=== PATIENT | female | born 1955 | race Caucasian/White ===

== ENCOUNTER 2016-10-05 05:52 | Day surgery (SDC) | payer BC ==
--- NOTE | 2016-10-04 13:04 | PREOPHP ---
DATE OF ADMISSION: 10/05/2016 HISTORY OF PRESENT ILLNESS: This 61-year-old patient is admitted for elective cataract surgery of t he right eye. The patient has had decreased vision in both eyes for approximately 1 year's time and was previously diagnosed with some diabetic retinal bleeding approximately a half a year ago. The patient's systemic history is positive for insulin-dependent diabetes mellitus and hypercholeste rolemia. CURRENT MEDICATIONS: Include: 1. Insulin. 2. Atorvastatin. 3. Prozac. 4. Xigduo. 5. Aspirin (discontinued 1 week prior to surgery). ALLERGIES: THERE ARE NO KNOWN ALLERGIES. The patient has also previously had pterygium surgery in both eyes approximately 7 years ago. PHYSICAL EXAMINATION: On examination, the visual acuity is 20/40 in each eye. Slit lamp examinatio n reveals anterior cortical nuclear sclerotic and posterior subcapsular cataract changes in both eye s. Applanation tonometry is 18 mmHg in both eyes. Examination of the retina reveals intraretinal h emorrhages compatible with diabetic retinopathy. DIAGNOSIS: Cataract, right eye. PLAN: Cataract extraction with lens implant, right eye. The risks and alternatives to the surgery have been discussed with the patient, and patient has agreed to proceed with surgery in hopes of imp roving visual acuity leading to a greater ability to perform activities of daily living. Dictated By: ALEXIA WASHBURN/QUOC Conf#: [id number] DID#: [id number]
[2016-10-04 13:39] VITALS: BMI 27.3
[2016-10-05] VITALS (9 sets, daily range): BP systolic 124–148; BP diastolic 69–83; PULSE 74–78; RESP 18–22; Ht 157.5 cm; Wt 67.5 kg
[~2016-10-05] VITALS: Ht 157.5 cm; Wt 67.5 kg
[~2016-10-05 05:52] MED LIST: CIPROFLOXACIN 0.3% 2.5 ML OPH OPER SCH; CYCLOPENTOLATE/PHENYLEPH 2 ML OPH OPER SCH; DICLOFENAC 0.1% 2.5 ML OPH OPER SCH; TROPICAMIDE 1% 2 ML OPH OPER SCH
[2016-10-05] MEDS ORDERED: MIDAZOLAM 1 MG/ML 2 ML INJ IV PRN (06:30)
[2016-10-05] MEDS ORDERED: OXYCODONE/ACETAMINOPHEN (5/325) TAB PO PRN ×2 (06:30)
[2016-10-05] MEDS ORDERED: ATROPINE 1 MG/10 ML SYRINGE IV PRN (06:30)
[2016-10-05] MEDS ORDERED: LABETALOL HCL 20MG INJ IV PRN (06:30)
[2016-10-05] MEDS ORDERED: PROPOFOL 20 ML ONE (06:30)
[2016-10-05] MEDS ORDERED: FENTAnyl 50 MCG/ML VIAL IV PRN ×2 (06:30)
[2016-10-05] MEDS ORDERED: hydrALAzine 20 MG INJ IV PRN (06:30)
[2016-10-05] MEDS ORDERED: morphine (1 MG/ML) 10ML SYRINGE IV PRN ×3 (06:30)
[2016-10-05] MEDS ORDERED: LIDOCAINE 100 MG SYRINGE ONE (06:30)
[2016-10-05] MEDS ORDERED: MEPERIDINE 25 MG INJ IV PRN (06:30)
[2016-10-05] MEDS ORDERED: EPHEDrine SULFATE 50 MG/5 ML SYG IV PRN (06:30)
[2016-10-05] MEDS ORDERED: HYDROmorphONE (0.2 MG/ML) 10ML SYG IV PRN ×3 (06:30)
[2016-10-05] MEDS ORDERED: ONDANSETRON 4 MG INJ IV PRN (06:30)
[2016-10-05] MEDS ORDERED: DIPHENHYDRAMINE 50 MG INJ IV PRN (06:30)
[2016-10-05] MEDS ORDERED: LIDOCAINE 4% (MPF) 5 ML INJ ONE (06:33)
[2016-10-05] MEDS ORDERED: CEFAZOLIN 1 GM INJ ONE (06:34)
[2016-10-05] MEDS ORDERED: EPINEPHrine 1 MG INJ ONE (06:34)
[2016-10-05] MEDS ORDERED: GENTAMICIN 80 MG INJ ONE (06:34)
[2016-10-05] MEDS ORDERED: CARBACHOL 0.01% 1.5 ML OPH INJ ONE (06:34)
[2016-10-05] MEDS ORDERED: HYALURONATE/CHONDROITIN 1ML OPH INJ ONE (06:35)
[2016-10-05] MEDS ORDERED: METF1000 PO (06:39)
[2016-10-05] MEDS ORDERED: LISI-313 PO (06:39)
[2016-10-05] MEDS ORDERED: SITA1TAB5 PO (06:39)
[2016-10-05] MEDS ORDERED: SIMV20TA6 PO (06:39)
[2016-10-05] MEDS ORDERED: GLIP2.5T14 PO (06:39)
[2016-10-05] MEDS ORDERED: HYALURONATE/CHONDROITIN 1ML OPH INJ IO ONE (07:00)
[2016-10-05] MEDS ORDERED: CEFAZOLIN 1 GM INJ INJ ONE (07:00)
[2016-10-05] MEDS ORDERED: CARBACHOL 0.01% 1.5 ML OPH INJ IO ONE (07:00)
[2016-10-05] MEDS ORDERED: DEXAMETHASONE 4 MG/ML 1 ML INJ INJ ONE (07:00)
[2016-10-05] MEDS ORDERED: DEXAMETHASONE 4 MG/ML 1 ML INJ ONE (07:18)
--- NOTE | 2016-10-05 08:33 | OPR ---
DATE OF OPERATION: 10/05/2016 PREOPERATIVE DIAGNOSIS: Cataract, right eye. POSTOPERATIVE DIAGNOSIS: Cataract, right eye. OPERATION PERFORMED: Cataract extraction with lens implant, right eye. SURGEON: Alexia Dong MD ANESTHESIA: Cristobal Andujar MD PROCEDURE: The patient was brought to the operating room and placed on the table with an IV in plac e and the patient attached to an campus monitor. Oxygen was given via face mask. After some intravenous sedation was administered, local anesthesia was given using Xylocaine 2% with epinephrine, mixed with Marcaine 0.5%. This was given in a lid block and retrobulbar injection. The patient was then prepped and draped in the usual sterile manner. A wire lid speculum was inserted between the lids of the right eye. A Superblade was used to enter t he anterior chamber at the corneoscleral limbus at the 10:30 o'clock position. A separate incision w as made using a 3.0-mm keratome which entered the corneoscleral junction at the 12 o'clock position. Through this 3-mm opening, an irrigating cystotome was introduced into the anterior chamber. The ch spike was filled with Viscoat and an anterior capsulotomy was performed. Balanced salt solution was then used for hydrodissection of the lens. A phacoemulsification handpiece was then brought into th e field and introduced into the anterior chamber. The lens nucleus was emulsified using a deep groov e and cracking the nucleus into quadrants. Following this, each quadrant was aspirated and emulsifie d at the pupillary margin. After this was completed, the irrigation/aspiration handpiece was brought to the field, introduced i nto the posterior chamber, and the lens cortical material was removed. When this was completed, barry tional Viscoat was injected into the anterior and posterior chambers. The 3-mm opening had its internal lips enlarged, and then the posterior chamber intraocular lens jackson suring 23.5 diopters (Bausch and Lomb model LI61AO) was then injected into the posterior chamber usi ng the lens injector system. After the leading haptic was introduced into the capsular bag and the l ens optic was present in the center of the eye, the injector was removed and the trailing haptic was grasped with non-toothed forceps and introduced into the capsular fold superiorly. A Sinskey hook w as then used to rotate the intraocular lens so that the lips were oriented in the horizontal meridia n. One 10-0 nylon suture was placed across the wound. Prior to tying, the irrigation/aspiration handpiece was reintroduced into the anterior chamber to re move the Viscoat. Miochol was instilled to constrict the pupil, and then the 10-0 nylon suture was t ied. The ends were cut short and then the knot was buried. Then, 0.5 mL of dexamethasone and 0.5 mL of Ancef were injected into the sub-Tenon space in the infe rior fornix. Ciloxan drops were then placed on the surface of the eye. The speculum was removed and a patch was applied. The patient then left the operating room in satisfactory condition. Dictated By: ALEXIA WASHBURN/QUOC Conf#: [id number] DID#: [id number]
== END 2016-10-05 13:00 | disposition home or self-care (01) ==
LOC: SDS 05:52
PROVIDERS: ATTEND Ophthalmology
DX: H25.11 Age-related nuclear cataract, right eye (principal); Z79.4 Long term (current) use of insulin; E78.00 Pure hypercholesterolemia, unspecified
CPT/HCPCS: 66984; 82962; J0171; J0690; J1100; J1580; J2001; V2632; Z7512; Z7610

== ENCOUNTER 2018-01-31 06:26 | Day surgery (SDC) | END 2018-01-31 12:00 | disposition home or self-care (01) ==